=== PATIENT | male | born 1990 | race Caucasian/White ===

== ENCOUNTER 2017-10-05 16:09 | Emergency (ER) | payer SELFPAY ==
[~2017-10-05] VITALS: Ht 185.4 cm; Wt 81.6 kg
[2017-10-05 16:12] VITALS: Ht 185.4 cm; Wt 81.6 kg
[2017-10-05 17:05] LABS: BASOPHIL % 0.6 % (0-2); PLATELET COUNT 215 x10^3mcL (130-400); RED CELL DISTRIBUTION WIDTH 12.8 % (11.5-14.5)
[2017-10-05 17:10] LABS: CALCIUM 9.7 mg/dL (8.5-10.1); CHLORIDE SERUM 104 mmol/L (98-107); CREATININE SERUM 0.8 mg/dL (0.7-1.3); GFR1 > 60 mL/min; GLUCOSE SERUM 106 mg/dL (74-106); POTASSIUM SERUM 3.3 mmol/L (3.5-5.1); SODIUM SERUM 142 mmol/L (136-145)
[2017-10-05 17:14] LABS: ALBUMIN 4.5 g/dL (3.4-5.0); ALKALINE PHOSPHATASE 84 U/L (46-116); ALT/SGPT 36 U/L (16-63); AST/SGOT 29 U/L (15-37); BILIRUBIN TOTAL 1.11 mg/dL (0.20-1.00); CHOLESTEROL 172 mg/dL (<200); CHOLESTEROL/HDL RATIO 4.4; HDL CHOLESTEROL 39 mg/dL (40-60); LIPASE 51 IU/L (73-393); TOTAL PROTEIN, SERUM 8.2 g/dL (6.4-8.2); TRIGLYCERIDES 54 mg/dL (<150)
[2017-10-05 17:26] LABS: FREE T4 1.12 ng/dL (0.76-1.46); T4(THYROXINE) 9.6 ug/dL (4.7-13.3)
[2017-10-05 17:30] LABS: UA SPECIFIC GRAVITY 1.015 (1.005-1.035); microscopic required? YES; urine erythrocyte TRACE (NEGATIVE)
[2017-10-05 17:33] LABS: T3 TOTAL 1.51 ng/mL
[2017-10-05 17:59] LABS: AMPHETAMINE QUAL UR NONE DETECTED (See below)
[2017-10-05 18:28] VITALS: BP 132/85
== END 2017-10-05 18:28 | disposition home or self-care (01) ==
LOC: ED 16:09
PROVIDERS: Specialist
DX: R06.02 Shortness of breath (principal); F12.10 Cannabis abuse, uncomplicated
CPT/HCPCS: 83880; 84439; G0480; J2060; J7030